=== PATIENT | male | born 2005 | race Caucasian/White ===

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

== ENCOUNTER 2025-03-15 16:03 | Outpatient (OUT) | payer OTHER, SELFPAY ==
--- NOTE | 2025-03-15 16:09 | CA_ITS ---
Patient Name: FERNANDO PICHARDO MR#: [id number] : 2005 Exam Date: 03/15/2025 Ordering Doctor: DR JANEY HERNANDEZ . ECHOCARDIOGRAM REPORT PROCEDURE: CA ECHO DOPPLER COMPLETE INDICATIONS: Palpitation COMPARISON: None. DESCRIPTION: COMPLETE ECHOCARDIOGRAM Real-time transthoracic echocardiography with 2D, M-mode, spectral and color flow Doppler performed. QUALITY: Technical quality was good. LEFT VENTRICLE: Normal chamber size. Normal left ventricular wall thickness. Global left ventricular systolic function is normal. LV EF: Estimated left ventricular ejection fraction is 55-60%. DIASTOLIC: Normal diastolic function. ATRIAL SEPTUM: LEFT ATRIUM: Normal chamber size. RIGHT ATRIUM: Normal chamber size. RIGHT VENTRICLE: Normal chamber size. Normal right ventricular systolic function. TRICUSPID VALVE: Normal mobility and thickness. No stenosis with trivial regurgitation. No evidence of pulmonary hypertension. RVSP 21 mmHg. MITRAL VALVE: Normal mobility and thickness. No evidence of mitral valve stenosis. There is no mitral annular calcification. Trivial mitral regurgitation. AORTIC VALVE: Possible bicuspid aortic valve. Thickened aortic valve. Normal leaflet mobility. No evidence of aortic valve stenosis. Mild to moderate aortic regurgitation. AORTIC ROOT: Normal diameter and appearance, measuring 3.4 cm. The ascending aorta is normal in size and measures 2.8 cm. PULMONIC VALVE: Normal thickness and mobility. No stenosis. Trivial regurgitation. PERICARDIUM: No evidence of pericardial effusion. IVC: Collapses with inspiration. Dilated measuring 2.6 cm. PLEURA: CONCLUSION: 1. Normal left ventricular size and systolic function. Estimated LVEF is 55 to 60%. 2. Normal right ventricular size and systolic function. 3. Likely bicuspid aortic valve with mild to moderate regurgitation and no stenosis. 4. Normal right-sided pressures. 5. Dilated inferior vena cava. 6. A transesophageal echocardiogram is recommended for better assessment of the aortic valve. Adult Echocardiography Procedure Report Left Ventricle LVEDD (3.7 - 5.6 cm): 5.57 cm LVESD (2.2 - 4.0 cm): 3.71 cm LVIVS thickness (0.6 - 1.2 cm): 0.78 cm LVPW thickness (0.5 - 1.0 cm): 1.04 cm e': 0.14 m/s E - e': 5.40 LVOT Max Gradient: 3.07 mm[Hg] LVOT Area (cm2): 0.88 m/s Peak Velocity (LVOT): 0.88 m/s Mean Velocity (LVOT): 0.63 m/s LVOT Diameter 2.61 cm Left Ventricular Ejection Fraction: 55-60% Left Atrium LA Volume Index (2D A2C): 28.28 ml/m2 Left Atrium Systolic Dimension: 3.04 cm Mitral Valve MV E to A Ratio: 1.99 Mitral Valve A-Wave Peak Velocity: 0.38 m/s Mitral Valve E-Wave Peak Velocity: 0.75 m/s Right Ventricle RV Internal Diastolic Dimension: 3.97 cm Aorta AO Root Diam: 3.44 cm Ascending Ao Diam: 2.79 cm Aortic Valve AoV Area (Peak Benja): 3.31 cm2, 3.31 cm2 AoV Area (VTI): 2.89 cm2, 2.89 cm2 Deceleration [place]: 1.97 m/s2 Pressure Half-Time: 644.87 ms Peak Velocity(Antegrade Flow): 1.42 m/s Peak Gradient(Antegrade Flow): 8.03 mm[Hg] Mean Velocity(Antegrade Flow): 0.96 m/s Mean Gradient(Antegrade Flow): 4.19 mm[Hg] Velocity Time Integral: 32.01 cm Tricuspid Valve Peak Velocity (Regurgitant Flow): 1.80 m/s Pulmonic Valve Mean Gradient: 2.02 mm[Hg], 1.82 mm[Hg] Mean Velocity: 0.65 m/s, 0.63 m/s Peak Velocity: 1.00 m/s Peak Gradient: 4.51 mm[Hg], 3.48 mm[Hg] Right Atrium Right Atrium Systolic Pressure: 59.82 ml, 59.82 ml Dictated by: Abdirahman Murcia M.D. on 03/15/2025 at 18:37 Approved by: Abdirahman Murcia M.D. on 03/15/2025 at 18:44
--- OUTSIDE RECORDS SUMMARY | 2025-03-15 16:10 | XMS_ITS | Clinical Summary ---
Author Organization [facility] Address [address] [place] [address] Care Team Providers Care Tubing Mill Setter Name Role Phone Dominick Atwood MD Primary Care Provider [phone] Allergies Active Allergy Reactions Criticality Noted Date Comments Amoxicillin-Pot Clavulanate Hives,Unknown High 03/08 Full body Azithromycin Hives 08/25/2014 Cephalosporins Hives 03/08/2013 Full body Penicillin G Hives 08/12/2023 Sulfa Antibiotics Unknown High 08/12/2023 Medications [facility] Allergy Relief,Cetirizi ne, 10 MG tablet Take 10 mg by mouth Daily Active fluticasone (Flonase) 50 MCG/ACT nasal sprayIndication s:Chronic maxillary sinusitis Administer 2 sprays into each nostril Daily Shake gently. Before first use, prime pump. After use, clean tip and replace cap. 48 g 3 Active Active Problems Problem Noted Date Diagnosed Date Chronic maxillary sinusitis 08/14/2023 DNS (deviated nasal septum) 08/14/2023 Acute sinus infection 08/12/2023 Displaced fracture of neck o f fifth metacarpal bone, right hand, initial encounter for closed fracture 08/12/2023 Sprain of radiocarpal joint of left wrist 2023 Murmur 08/12/2023 Acute pharyngitis 08/12/2023 Sports physical 08/12/2023 Cough, unspecified 08/12/2023 Left wrist pain 08/12/2023 Other chronic diseases of tonsils and adenoids 0 08/12/2023 Acute bronchitis 08/12/2023 Bicuspid aortic valve (HHS-HCC) 03/08/2013 Palpitations 03/08/2013 Family History Medical History Relation Name Comments No Known Problems Brother Aneurysm Father open heart surgery Father Relation Name Status Comments Brother Alive Father Alive Mother Alive Social History Tobacco Use Types Packs/Day Years Used Date Smoking Tobacco: Never Smokeless Tobacco: Never Tobacco Cessation:Counseling Given: Not Answered Alcohol Use Standard Drinks/Week Comments Never 0 (1 standard drink = 0.6 oz pur e alcohol) Sex and Gender Information Value Date Recorded Sex Assigned at Not on file Legal Sex Male 7:58 PM EDT Gender Identity Not on file Sexual Orientation Not on file Last Filed Vital Signs Vital Sign Reading Time Taken Comments Blood Pressure 152/83 08/14/2023 10:45 AM EDT Pulse - - Temperature - - Respiratory Rate - - Oxygen Saturation - - Inhaled Oxygen Concentration - - Weight 97.1 kg (214 lb) 08/14/2023 10:45 AM EDT Height 182.9 cm (6') 08/14/2023 10:45 AM EDT Body Mass Index 29.02 08/14/2023 10:45 AM EDT Body Mass Index Percentile 95.20% 08/14/2023 10: 45 AM EDT Growth Chart: [facility] (Boys, 2-2 0 Years) Plan of Treatment Not on file Insurance [facility] Care Teams Tubing Mill Setter Relationship Specialty Start Date End Date Dominick Atwood MD PCP - General Family Medicine 07/28/23
--- OUTSIDE RECORDS SUMMARY | 2025-03-15 16:10 | XMS_ITS | Clinical Summary ---
Author Organization [facility] Address [address] [place] [address] Care Team Providers Care Glass Presser Name Role Phone Dominick Atwood MD Primary Care Provider [phone] Allergies Active Allergy Reactions Criticality Noted Date Comments Amoxicillin-Pot Clavulanate Hives 03/08/20 13 Full body Cephalosporins Hives 03/08/2013 Full body Azithromycin Hives 08/25/2014 Medications No known medications Active Problems Problem Noted Date Diagnosed Date Bicuspid aortic valve 03/08/2013 Palpitations 03/08/2013 Social History Tobacco Use Types Packs/Day Years Used Date Smoking Tobacco: Never Smokeless Tobacco: Never Alcohol Use Standard Drinks/Week Comments Not Asked 0 (1 standard drink = 0.6 oz pur e alcohol) Area Deprivation Index Answer Date Guillermo rded National Score (1-100), lower number is lower ri sk Not on file 05/07/2020 State Score (1-10), lower number is lower risk N ot on file 05/07/2020 Data from: https://www.neighborhoodatlas.medicine.[facility].edu/. Last address used for calculation Not on file 05/07/2020 Sex and Gender Information Value Date Recorded Sex Assigned at Not on file Legal Sex Male 8:10 AM EST Gender Identity Not on file Sexual Orientation Not on file Last Filed Vital Signs Vital Sign Reading Time Taken Comments Blood Pressure 118/68 01/22/2018 11:03 AM EDT Pulse 70 01/22/2018 11:03 AM EDT Temperature 36.5 C (97.7 F) 09/12/2016 9:22 AM EDT Respiratory Rate - - Oxygen Saturation 100% 01/22/2018 11:03 AM EDT Inhaled Oxygen Concentration - - Weight 56.5 kg (124 lb 8 oz) 01/22/2018 11:03 AM EDT Height 158.3 cm (5' 2.32 ) 01/22/2018 11:03 AM E DT Body Mass Index 22.54 01/22/2018 11:03 AM EDT Body Mass Index Percentile 91.17% 01/22/2018 11: 03 AM EDT Growth Chart: [facility] (Boys, 2-2 0 Years) Plan of Treatment Health Maintenance Due Date Last Done Comments Peds To Adult Transition Ini tial Discussion 2017 Peds To Adult Transition Xin ual Assessment 12/17/2019 HPV Vaccine (1 - Male 3-dose series) 2020 Meningococcal B Vaccine (1 o f 2 - Standard) 2021 Anxiety Screening 12/17/2023 Depression Screening 12/17/2023 HIV Screening 12/17/2023 Hepatitis C Screening 12/17/2023 DTaP,Tdap,Td Vaccine (1 - Tdap) 2024 Hepatitis B Vaccine (1 of 3 - 19+ 3-dose series) 2024 Covid-19 Vaccine (1 - 2024-2 6 season) 2025 Influenza Vaccine (#1) 2025 Meningococcal Conjugate Vaccine Aged Out No longer eligible based on patient's age to complete this topic Insurance Care Teams Glass Presser Relationship Specialty Start Date End Date Dominick Atwood MD PCP - General Family Medicine 03/15/13
--- OUTSIDE RECORDS SUMMARY | 2025-03-15 16:10 | XMS_ITS | Encounter Summary ---
Author Organization [facility] Address [address] [place] [address] Care Team Providers Care Workforce Management Coordinator Name Role Phone Dominick Atwood MD Primary Care Provider [phone] Encounter Details Date Type Department Care Team (Late st Contact Info) Description 09/03/2023 Orders Only [facility] [address] [place] [address] Elana Capone MD [address] [place] [address] Social History Tobacco Use Types Packs/Day Years Used Date Smoking Tobacco: Never Smokeless Tobacco: Never Alcohol Use Standard Drinks/Week Comments Never 0 (1 standard drink = 0.6 oz pur e alcohol) Sex and Gender Information Value Date Recorded Sex Assigned at Not on file Legal Sex Male 7:58 PM EDT Gender Identity Not on file Sexual Orientation Not on file documented as of this encounter Plan of Treatment Not on file documented as of this encounter Procedures Procedure Name Priority Date/Time Associated Diagnosis Comments SCANNED LABS Routine 08/15/2023 4:22 PM EDT documented in this encounter Results * SCANNED LABS (08/15/2023 4:22 PM EDT) Elana Capone MD LAB CHG PERFORMABLES Final Re sult documented in this encounter Visit Diagnoses Not on filedocumented in this encounter Care Teams Workforce Management Coordinator Relationship Specialty Start Date End Date Dominick Atwood MD PCP - General Family Medicine 07/28/23 documented as of this encounter
== END 2025-03-15 16:04 | disposition home or self-care (01) ==
PROVIDERS: PCP Family Medicine; Visit Provider Family Medicine
DX: R00.2 Palpitations (principal)
CPT/HCPCS: 93306